=== PATIENT | female | born 1930 | race Caucasian/White ===

== ENCOUNTER 2016-12-14 08:24 | Inpatient (IN) | payer OTHER ==
[2016-12-01 13:49] VITALS: BMI 31.0
--- NOTE | 2016-12-01 14:25 | PAT Medication Instructions ---
Service Date Dec 01, 2016. Current Home Medication List Aloe Vera (Topical) (Aloe Vera), 1 TAB PO QAM Bimatoprost (Lumigan), 1 DROPS OP HS Brimonidine Tartrate (Alphagan P Oph), 1 DROP OP BID Metoprolol Succ (Toprol Xl) (Toprol-Xl), 25 MG PO QAM Naproxen (Aleve), 440 MG PO PRN S-Adenosylmethionine (Panchito E), 400 MG PO QAM Medication Instructions For Your Scheduled Surgery - Hold the following medications as of 12/01/16: S-Adenosylmethionine (Panchito E), 400 MG PO QAM - Hold the following medications 7 days prior to surgery: Naproxen (Aleve), 440 MG PO PRN (per surgeon's instructions) - Hold the following medications 24 hours prior to surgery: Aloe Vera (Topical) (Aloe Vera), 1 TAB PO QAM - Take the following medications the morning of surgery with a sip of water OTHERWISE NOTHING TO EAT OR DRINK AFTER MIDNIGHT: Metoprolol Succ (Toprol Xl) (Toprol-Xl), 25 MG PO QAM Brimonidine Tartrate (Alphagan P Oph), 1 DROP OP BID Tylenol (may take if needed up to 4 hours prior to surgery) - Take the following medications as scheduled the night before surgery: Bimatoprost (Lumigan), 1 DROPS OP HS Brimonidine Tartrate (Alphagan P Oph), 1 DROP OP BID Tylenol If you have any questions please call us at [phone] or [phone] or [phone]
[2016-12-01 15:03] LABS: BASO % 0.5 %; BASO ABS # 0.04 K/uL (0-0.2); COMPLETE YES; EOS % 3.6 %; HEMATOCRIT 40.1 % (37-47); IG% 0.1 %; LYMPH % 38.8 %; MEAN CELL VOLUME 96.4 fL (80-100); MEAN CORPUSCULAR HEMOGLOBIN 32.5 pg (25-34); MEAN CORPUSCULAR HGB CONC 33.7 g/dl (32-36); MEAN PLATELET VOLUME 9.5 fL (7.4-10.4); MONO % 8.4 %; NEUT % 48.6 %; PLATELET COUNT 281 K/uL (130-400); RED BLOOD COUNT 4.16 M/uL (4.2-5.4)
[2016-12-01 15:05] LABS: URINE APPEARANCE CLEAR (CLEAR); URINE BILIRUBIN NEG (NEG); URINE COLOR YELLOW; URINE EPITHELIAL CELL AUTO >30 /lpf (0-5); URINE NITRITE NEG (NEG); URINE SPECIFIC GRAVITY 1.025 (1.000-1.030); UROBILINOGEN NEG (NEG); ZZUR CULT IF INDIC CLEAN CATCH NO
[2016-12-01 15:10] LABS: MANUAL MICROSCOPIC REQUIRED? NO; REVIEW REQ? NO
[2016-12-01 15:11] LABS: PROTHROMBIN TIME (PATIENT) 10.6 SECONDS (9.0-12.0)
--- NOTE | 2016-12-01 15:17 | DIAGNOSTIC IMAGING REPORT ---
CHEST PREADMISSION(PA/LAT) CLINICAL HISTORY: Preoperative chest COMPARISON STUDY: No previous studies for comparison. FINDINGS: The cardiac and mediastinal contours are normal. There is no evidence of focal pulmonary consolidation. There is no evidence of failure. No pleural effusions are visualized.[ There are surgical clips in the left axillary region. There is a calcified granuloma within the right upper lung zone. IMPRESSION: No active disease in the chest. Electronically signed by: Ja Allen M.D. 12/01/2016 3:16 PM Dictated Date/Time: 12/01/2016 3:15 PM
[2016-12-01 15:47] LABS: BUN/CREATININE RATIO 22.2 (10-20); CALCIUM 9.3 mg/dl (8.5-10.1); POTASSIUM 4.3 mmol/L (3.5-5.1)
[2016-12-02 07:12] LABS: ESTIMATED AVERAGE GLUCOSE 120 mg/dl; HA1C FLAG Normal (Normal)
--- NOTE | 2016-12-13 19:58 | HISTORY & PHYSICAL EXAMINATION ---
DATE OF ADMISSION: 12/14/2016 HISTORY OF PRESENT ILLNESS: The patient is an 86-year-old white female who presents with complaints of ongoing severe DJD with inability to ambulate due to pain about her right knee. She has a valgus alignment to her right knee. She has failed all attempts at conservative management including, physical therapy, anti-inflammatories, relative rest, activity modification, bracing, corticosteroid injections and presents for total knee arthroplasty. Thorough discussion regarding risks, complications has been had. The patient understands and has elected to proceed forward with total knee arthroplasty. PAST MEDICAL HISTORY: Consistent with hypertension. The patient denies diabetes or other bleeding disorders. Otherwise unremarkable. See history of present illness for pertinent positives. PAST FAMILY HISTORY: Otherwise unremarkable and noncontributory. SOCIAL HISTORY: The patient denies history of alcohol use, smoking or recreational drug use. ALLERGIES: ARE TO PENICILLIN AND SULFA. PAST SURGICAL HISTORY: Significant for a previous breast cancer, mastectomy in 1998, hysterectomy. MEDICATIONS: Include, aspirin 81 mg p.o. daily. PHYSICAL EXAMINATION: GENERAL: Reveals a very pleasant 86-year-old white female, alert and oriented x3, in no acute distress. HEENT: Atraumatic, normocephalic. HEART: Regular at 70 beats per minute. No murmurs are noted. LUNGS: Clear. No rales, rhonchi, or wheezes noted. ABDOMEN: Soft, nontender, nondistended. Bowel sounds are present in all 4 quadrants. RECTAL: No rectal examination was performed. MUSCULOSKELETAL: Reveals severe tricompartmental degenerative joint disease with valgus alignment, she has subchondral cystic changes, osteophyte formation and sclerosis. PLAN: She presents for total knee arthroplasty, postoperative pain management, DVT prophylaxis as noted above. The patient understands the risks and complications and has elected to proceed forward. We will make arrangements for a total knee arthroplasty, postoperative pain management, DVT prophylaxis as noted above. MANNYD
[2016-12-14] VITALS (10 sets, daily range): BP systolic 95–154; BP diastolic 52–97; PULSE 73–103; TEMP 36–36.8; O2SAT 92–99; Ht 167.6 cm; Wt 90.4 kg
[~2016-12-14] VITALS: Ht 167.6 cm; Wt 90.4 kg
[2016-12-14] MEDS: TRANEXAMIC ACID INJ 1,000 MG in SODIUM CHLORIDE 0.9% 100ML 100 ML IV SCH ×2 (06:30→11:13)
--- NOTE | 2016-12-14 08:22 | History & Physical Bridge Note ---
H&P Re-Evaluation Bridge Note: I have examined the patient, reviewed the History & Physical and in the interval since the performance of the History & Physical I have noted the following changes of clinical significance: No changes noted
[~2016-12-14 08:24] MED LIST: ACETAMINOPHEN 500 MG TAB PO SCH; ALOE1GEL2 PO; BIMA0.01 OP; BRIM0.1S OP; BUPIVACAINE 0.5 % 5 MG/1 ML PF 10ML VIAL ONE; CLINDAMYCIN 600 MG/54 ML D5W 54 ML IV SCH; CeleBREX 200 MG CAP PO SCH; DEXAMETHASONE 4 MG TAB PO SCH; FAMOTIDINE 20 MG TAB PO SCH; GABAPENTIN 300 MG CAP PO SCH; LACTATED RINGER'S 1000ML 1,000 ML IV SCH; LACTATED RINGER'S 1000ML 500 ML IV ONE; METO25TA3 PO; METOCLOPRAMIDE HCL 10 MG TAB PO SCH; NAPR1TAB9 PO; ROPIVACAINE 5MG/ML 30 ML 150 MG, BUPIVACAINE/EPINEPHR 0.5% MPF 30 ML, KETOROLAC TROMETH... INFIL SCH; S-AD1TAB6 PO
[2016-12-14] MEDS ORDERED: EpHEDrine SULFATE INJ 50 MG/ML AMP IV PRN (09:15)
[2016-12-14] MEDS ORDERED: ONDANSETRON INJ 2 MG/ML 2 ML VIAL IV PRN ×2 (09:15→13:00)
[2016-12-14] MEDS ORDERED: FENTANYL CITRATE INJ 50 MCG/1 ML 2 ML VIAL IV PRN (09:15)
[2016-12-14] MEDS ORDERED: ATROPINE SULFATE 0.1 MG/ML 5ML SYR IV PRN (09:15)
[2016-12-14] MEDS ORDERED: PROPOFOL IV EMULSION 10 MG/ML 20 ML VIAL IV ONE (09:27)
[2016-12-14] MEDS ORDERED: MIDAZOLAM HCL 1 MG/ML 2ML VIAL ONE (09:27)
[2016-12-14] MEDS ORDERED: LIDOCAINE HCL 2% 2 ML VIAL (20MG/ML) ONE (09:27)
[2016-12-14] MEDS ORDERED: FENTANYL CITRATE INJ 50 MCG/1 ML 2 ML VIAL ONE (09:27)
[2016-12-14] MEDS ORDERED: POVIDONE-IODINE OP SOLN 30 ML BTL ONE (10:25)
[2016-12-14] MEDS ORDERED: BACITRACIN 50000 UNIT VIAL ONE (10:25)
[2016-12-14] MEDS ORDERED: ORTHO JOINT ANESTHETIC ONE (10:25)
--- NOTE | 2016-12-14 12:15 | [facility] Operative Report ---
Operative Report Operative Date Dec 14, 2016. Pre-Operative Diagnosis Severe Right Knee Degenerative Joint Disease Post-Operative Diagnosis Severe Right Knee Degenerative Joint Disease Procedure(s) Performed Right Total Knee Arthroplasty utilizing Carrillo & Nephew journey 2 nonlocked total knee arthroplasty size 5 femur 4 tibia 10 poly-[address] Van Schwab General Engineering Teacher Surgeon(s) Gregg BERMUDEZ Estimated Blood Loss 5ml Findings Severe end-stage tricompartmental degenerative joint disease right knee with valgus alignment Specimens Permanent: A. Right Knee Bone and Tissue Complication(s) None Disposition Recovery Room / PACU Indications Severe end-stage tricompartmental degenerative joint disease with valgus alignment large positive conservative therapy Description of Procedure After proper prepping and draping of the Right lower extremity anterior midline incision was made over the region of the extensor extensor mechanism after meticulous hemostasis was obtained and maintained in subcutaneous tissues a medial parapatellar incision was made The patella was subluxed lateralward the medial lateral gutter were cleaned from any hypertrophic synovitis and scar tissue of the distal femoral block was placed and the distal femoral osteotomy cut was made subsequently the chamfers anterior and posterior osteotomy cuts were made utilizing the 4-in-1 block the tibia was subsequently subluxed anteriorward medial and ateral meniscal remnants were excised in their entirety remnants of the anterior and posterior cruciate ligaments were excised in their entirety excellent exposure of the proximal tibia was obtained the tibial osteotomy guide was placed on the proximal tibial osteotomy cut was made once again the knee was irrigated with copious amounts of sterile saline solution the patella was subsequently everted lateralward thickened scar tissue around the patella was removed the patella was subsequently cut utilizing a freehand technique and was drilled prepared for final preparation and placement of patella socially flexion-extension gaps were checked and the equal and symmetric trials were placed to the appropriate femoral and tibial trials with poly-spacer being placed for equal flexion and extension gaps and full range of motion including extension to 0 and flexion to 140 the trial components after having been taken to recovery range of motion was subsequently removed meticulous hemostasis was obtained and maintained subsequently a knee block injection of joint cocktail including ropivacaine 0.5% 150 mg. Bupivacaine 0.5 % epinephrine 1-200,030 mL's toradol 30 mg dexamethasone 4 mg ketamine 10 mg clonidine 100 micrograms normal saline solution 30 mg was infiltrated into the soft tissues of the posterior knee medial lateral gutters and periosteal synovium special attention was paid to protect neurovascular structures at all times subsequently trial components having been removed the knee was irrigated with sterile saline solution. debris was removed the proximal tibia was subsequently prepared and was made ready for the placement of the tibial component tibial component was also cemented and tamped into position the femoral component was subsequently placed and cemented in the position the patellar component was subsequently cemented in position because hemostasis once again obtained and maintained wound having been thoroughly irrigated with debridement and debridement lavage was performed as well as a medial parapatellar incision closed with #1 Vicryl in interrupted fashion subcutaneous was closed with #2 Vicryl skin was closed with skin clips. PA-C was necessary for prepping and drapping as well as wound closure of deep fascia Sub cutaneous tissue and skin and was necessary for the case. A sterile compressive dressing was placed patient was taken to recovery in stable condition of report dictated by Zaheer I attest to the content of the Intraoperative Record and any orders documented therein. Any exceptions are noted below. I attest to the content of the Intraoperative Record and any orders documented therein. Any exceptions are noted below.
[2016-12-14] MEDS ORDERED: BISACODYL 10 MG SUPP PR PRN (13:00)
[2016-12-14] MEDS ORDERED: MAGNESIUM HYDROXIDE SUSP 30 ML UDC PO PRN (13:00)
[2016-12-14] MEDS ORDERED: TRAMADOL HCL 50 MG TAB PO PRN (13:00)
[2016-12-14] MEDS ORDERED: ALUMINUM/MAGNESIUM/SIMETH (MAALOX MAX) 30 ML UDC PO PRN (13:00)
[2016-12-14] MEDS ORDERED: MoRPHine SULFATE 2 MG/ML CARP IV PRN (13:00)
--- NOTE | 2016-12-14 13:36 | DIAGNOSTIC IMAGING REPORT ---
RIGHT KNEE 1 OR 2 VIEWS ROUTINE CLINICAL HISTORY: Degenerative arthritis. Postop study. COMPARISON: None. DISCUSSION: There are postsurgical changes of a total right knee arthroplasty and patellar resurfacing. Overlying skin barak and surgical drains are evident. There is air in soft tissues consistent with recent surgery. IMPRESSION: Postsurgical changes of a total right knee arthroplasty Electronically signed by: Ja Allen M.D. 12/14/2016 1:35 PM Dictated Date/Time: 12/14/2016 1:34 PM
--- NOTE | 2016-12-14 13:44 | Anesthesiology Progress Note ---
Anesthesia Post Op Note Date & Time Dec 14, 2016 at 13:44 Vital Signs Pain Intensity: 0 Vital Signs Past 12 Hours Date Time Temp Pulse Resp B/P (MAP) Pulse Ox O2 Delivery O2 Flow Rate FiO2 12/14/16 13:35 36.5 81 16 124/77 97 Nasal Cannula 2 12/14/16 13:25 36.5 78 16 125/74 97 Nasal Cannula 2 12/14/16 13:15 78 16 120/67 97 Nasal Cannula 2 12/14/16 13:05 78 16 117/64 97 Nasal Cannula 2 12/14/16 12:55 81 16 128/70 97 Nasal Cannula 2 12/14/16 12:48 36.7 83 16 121/58 94 Nasal Cannula 2 12/14/16 08:58 36.6 103 20 154/97 97 Room Air Notes Mental Status: alert / awake / arousable, participated in evaluation Pt Amnestic to Procedure: Yes Nausea / Vomiting: adequately controlled Pain: adequately controlled Airway Patency, RR, SpO2: stable & adequate BP & HR: stable & adequate Hydration State: stable & adequate Neuraxial Anesthesia: was administered, sensory block is resolving Anesthetic Complications: no major complications apparent
[2016-12-14] MEDS: ALPHAGAN~ORDER AWAITING ACTION SCH ×2 (16:00→23:31)
[2016-12-14] MEDS: D5W AND 1/2NSS + 20MEQ KCL 1,000 ML IV SCH (16:31)
[2016-12-14] MEDS: FERROUS GLUCONATE 324 MG TAB PO SCH (18:15)
[2016-12-14] MEDS: CLINDAMYCIN IV 600 MG in DEXTROSE 5% 50ML 50 ML IV SCH (20:30)
[2016-12-14] MEDS: ACETAMINOPHEN 500 MG TAB PO SCH (21:44)
[2016-12-14] MEDS: BIMATOPROST 0.01% OP SOLN 2.5 ML BTL OP SCH (21:44)
[2016-12-14] MEDS: SENNA 8.6 MG TAB PO SCH (21:45)
[2016-12-14] MEDS: DOCUSATE SODIUM 100 MG CAP PO SCH (21:45)
[2016-12-14] MEDS: ASPIRIN 81 MG ECTAB PO SCH (21:46)
[2016-12-15] MEDS: D5W AND 1/2NSS + 20MEQ KCL 1,000 ML IV SCH ×2 (01:12→11:00)
[2016-12-15 02:53] VITALS: BP 102/65; PULSE 71; TEMP 36.5; O2SAT 95
[2016-12-15] MEDS: CLINDAMYCIN IV 600 MG in DEXTROSE 5% 50ML 50 ML IV SCH (04:10)
[2016-12-15] MEDS: ACETAMINOPHEN 500 MG TAB PO SCH ×3 (05:34→21:34)
[2016-12-15 05:56] LABS: HEMATOCRIT 34.9 % (37-47); MEAN CELL VOLUME 97.5 fL (80-100); MEAN CORPUSCULAR HEMOGLOBIN 31.3 pg (25-34); MEAN CORPUSCULAR HGB CONC 32.1 g/dl (32-36); MEAN PLATELET VOLUME 9.3 fL (7.4-10.4); PLATELET COUNT 256 K/uL (130-400); RED BLOOD COUNT 3.58 M/uL (4.2-5.4); WHITE BLOOD COUNT 18.73 K/uL (4.8-10.8)
[2016-12-15 06:28] LABS: BUN/CREATININE RATIO 16.5 (10-20); CALCIUM 7.8 mg/dl (8.5-10.1); CREATININE 1.2 mg/dl (0.60-1.20); POTASSIUM 4.3 mmol/L (3.5-5.1)
[2016-12-15 07:24] VITALS: BP 120/76; PULSE 75; TEMP 36.5; O2SAT 95
[2016-12-15] MEDS: MULTIVITAMIN TAB PO SCH (08:37)
[2016-12-15] MEDS: PANTOprazole SOD 40 MG TAB PO SCH (08:40)
[2016-12-15] MEDS: DOCUSATE SODIUM 100 MG CAP PO SCH ×2 (08:40→21:00)
[2016-12-15] MEDS: METOPROLOL SUCC 25MG EXT REL TAB PO SCH (08:40)
[2016-12-15] MEDS: FERROUS GLUCONATE 324 MG TAB PO SCH ×3 (08:40→17:21)
[2016-12-15] MEDS: ASPIRIN 81 MG ECTAB PO SCH ×2 (08:41→21:32)
[2016-12-15] MEDS: ALPHAGAN~ORDER AWAITING ACTION SCH ×3 (08:41→22:48)
[2016-12-15] MEDS: OXYCODONE HCL IR 5 MG TAB (IMMEDIATE RELEASE) PO PRN ×3 (09:57→23:18)
--- NOTE | 2016-12-15 10:16 | Anesthesiology Progress Note ---
Anesthesia Post Op Note Date & Time Dec 15, 2016 at 10:15 Vital Signs Pain Intensity: 3.0 Vital Signs Past 12 Hours Date Time Temp Pulse Resp B/P (MAP) Pulse Ox O2 Delivery O2 Flow Rate FiO2 12/15/16 07:30 Room Air 12/15/16 07:24 36.5 75 17 120/76 (91) 95 Room Air 12/15/16 02:53 36.5 71 18 102/65 (77) 95 Room Air 12/14/16 23:00 36.8 76 16 103/64 (77) 92 Room Air Notes Mental Status: alert / awake / arousable, participated in evaluation Pt Amnestic to Procedure: Yes Nausea / Vomiting: adequately controlled Pain: adequately controlled Airway Patency, RR, SpO2: stable & adequate BP & HR: stable & adequate Hydration State: stable & adequate Neuraxial Anesthesia: was administered, sensory block resolved Anesthetic Complications: no major complications apparent
[2016-12-15 15:40] VITALS: BP 147/83; PULSE 104; TEMP 36.4; O2SAT 95
[2016-12-15] MEDS: BIMATOPROST 0.01% OP SOLN 2.5 ML BTL OP SCH (21:00)
[2016-12-15] MEDS: SENNA 8.6 MG TAB PO SCH (21:00)
[2016-12-15 23:12] VITALS: BP 113/72; PULSE 74; TEMP 36.6; O2SAT 94
[2016-12-16] MEDS: ACETAMINOPHEN 500 MG TAB PO SCH ×2 (05:45→13:41)
[2016-12-16 06:04] VITALS: BP 122/76; PULSE 72; TEMP 36.4; O2SAT 98
--- NOTE | 2016-12-16 07:09 | Orthopedic Progress Note ---
Orthopedic Progress Note Date of Service Dec 16, 2016. Subjective Post OP Day: 2 Reports: feeling well, pain controlled w PO medications, Denies: complaints, chest pain, SOB, nausea / vomiting, light headedness, calf pain Objective calves soft nontender, N/V intact, capillary refill less than 2 sec., dressing C /D/I (silverlon intact), A&O x3, toes mobile Date Time Temp Pulse Resp B/P (MAP) Pulse Ox O2 Delivery O2 Flow Rate FiO2 12/16/16 06:04 36.4 72 16 122/76 (91) 98 Room Air 12/15/16 23:12 36.6 74 16 113/72 (86) 94 Room Air 12/15/16 23:10 Room Air 12/15/16 16:15 Room Air 12/15/16 15:40 36.4 104 16 147/83 (104) 95 Room Air 12/15/16 07:30 Room Air 12/15/16 07:24 36.5 75 17 120/76 (91) 95 Room Air Assessment & Plan Assessment: POD #2 s/p Right TKA -pt/ot -dvt proph with livier/scd/asa -plan for d/c home with HHPT Discharge Planning Discharge Planning: home with home health DVT Prophylaxis: TEDs, SCDs
--- NOTE | 2016-12-16 07:11 | Discharge Instructions ---
Discharge Instructions Date of Service Dec 16, 2016. Admission Reason for Admission: Right Knee Osteoarthritis Discharge Discharge Diagnosis / Problem: right total knee replacement Discharge Goals Goal(s): Decrease discomfort, Improve function, Increase independence Activity Recommendations Activity Limitations: as noted below Weightbearing Status: Right weightbearing (as tolerated) . Instructions / Follow-Up Instructions / Follow-Up ACTIVITY RECOMMENDATIONS: SELF CARE INSTRUCTIONS AFTER TOTAL KNEE REPLACEMENT A. You may need to continue a physical therapy program after discharge from the hospital. There are several options available to you. Your doctor will assist you in selecting the best one for you. 1. An out-patient facility 2 to 3 times a week for therapy or home therapy. 2. Continue working on all exercises taught to you in the hospital. Your goals should be to increase bending of your knee to 90 degrees and beyond and to fully straighten your knee. B. You may progress at your own pace from walking with a walker or crutches to a cane; then to no assistive devices. C. Make walking a part of your daily routine. Be up as much as comfortable with rest periods throughout the day. Rest with leg elevation is very important. Use the ice wrap frequently for the first 3-4 weeks. D. There are no restrictions on activities. You may ride in a car, shop, participate in night coordinator and all social activities. E. Wear the long elastic stockings (DASHA hose) 20 hours a day for 2 weeks after surgery. They can be removed several times a day for laundering and for a bath. F. You may shower, no tub baths until cleared by your doctor. SPECIAL CARE INSTRUCTIONS: VERY IMPORTANT TO READ AND REVIEW A. There are a few signs you need to watch for after you are home. Call [facility] if you notice any of the followin. Increased severe knee pain. Some pain is expected especially when you exercise. 2. Increased swelling in your leg or knee; pain or swelling of the calf muscle in either lower leg. 3. Any fluid drainage from the incision. 4. Shortness of breath or chest pain. B. Please call [facility] at if you have any concerns or questions about your operation or recovery. The doctor or his nurse will return your call promptly. C. You must take antibiotics before dental work, bladder, bowel or other surgery. Your doctor will provide you with a permanent care to carry describing this precaution. IMPORTANT: * REMEMBER TO TAKE ASPIRIN, 81 MG, TWICE DAILY FOR 4 WEEKS UNLESS OTHERWISE DIRECTED. THIS IS YOUR BLOOD THINNER. * HIGH RISK PATIENTS MAY BE PRESCRIBED A STRONGER BLOOD THINNER. THIS WILL BE PROVIDED AT DISCHARGE. * CALL IF INCREASED PAIN, REDNESS, DRAINAGE OR FEVER GREATER THAT 101. * WEAR DASHA HOSE 20 HOURS PER DAY FOR 2 WEEKS. * YOU MAY HAVE A LARGE BAND-AID LIKE DRESSING (SILVERON). THIS WILL REMAIN ON YOUR INCISION FOR 7 DAYS, THEN CAN BE REMOVED. IF INCISION IS LEAKING THROUGH DRESSING, CALL THE OFFICE . FOLLOW UP VISIT: If appointment is not already scheduled: Please call [facility] to make a follow-up appointment for 2 weeks after your surgery at . Current Hospital Diet Patient's current hospital diet: Regular Diet Discharge Diet Recommended Diet: Regular Diet Procedures Procedures Performed: Right Total Knee Arthroplasty utilizing Carrillo & Nephew journey 2 nonlocked total knee arthroplasty size 5 femur 4 tibia 10 poly-29 oval patella Pending Studies Studies pending at discharge: no Laboratory Results Hemoglobin A1c Test 12/01/16 14:37 Range/Units Estimated Average Glucose 120 mg/dl Hemoglobin A1c 5.8 H 4.5-5.6 % Medical Emergencies . Who to Call and When: Medical Emergencies: If at any time you feel your situation is an emergency, please call 911 immediately. . Non-Emergent Contact Non-Emergency issues call your: Primary Care Provider, Surgeon . "Provider Documentation" section prepared by Reynaldo Barry. . VTE Core Measure Inpt VTE Proph given/why not?: Other Anticoagulation (aspirin 81mg po bid x 1 month), Tommie Lynn, SCD's [place] Drug Monitoring Program Search Results: patient reviewed within database, no issues identified
[2016-12-16] MEDS ORDERED: RXC5 PO (07:16)
[2016-12-16] MEDS ORDERED: ONDA8TAB6 PO (07:16)
[2016-12-16] MEDS ORDERED: CLC100 PO (07:16)
[2016-12-16] MEDS ORDERED: ASPEC81 PO (07:16)
[2016-12-16] MEDS ORDERED: ULT50X PO (07:16)
[2016-12-16] MEDS ORDERED: ACET-24 PO (07:16)
[2016-12-16 07:20] VITALS: BP 136/69; PULSE 75; TEMP 36.6; O2SAT 96
[2016-12-16] MEDS: FERROUS GLUCONATE 324 MG TAB PO SCH ×3 (07:36→13:42)
[2016-12-16] MEDS: ALPHAGAN~ORDER AWAITING ACTION SCH (07:36)
[2016-12-16] MEDS: DOCUSATE SODIUM 100 MG CAP PO SCH (07:36)
[2016-12-16] MEDS: MULTIVITAMIN TAB PO SCH (07:36)
[2016-12-16] MEDS: METOPROLOL SUCC 25MG EXT REL TAB PO SCH (07:37)
[2016-12-16] MEDS: PANTOprazole SOD 40 MG TAB PO SCH (07:37)
[2016-12-16] MEDS: ASPIRIN 81 MG ECTAB PO SCH (08:36)
[2016-12-16] MEDS: OXYCODONE HCL IR 5 MG TAB (IMMEDIATE RELEASE) PO PRN (09:44)
[2016-12-16 12:05] VITALS: BP 136/69; PULSE 75; TEMP 36.6; O2SAT 96
--- NOTE | 2016-12-20 17:16 | DISCHARGE SUMMARY ---
DISCHARGE DIAGNOSIS: Degenerative joint disease, right knee. SECONDARY DIAGNOSES: Hypertension, glaucoma. CONSULTS: None. COMPLICATIONS: None. PROCEDURES: Right total knee arthroplasty performed by Dr. Schwab on 12/14/2016. BRIEF HISTORY: As dictated in history and physical. HOSPITAL SUMMARY: The patient was admitted on the above date and had the above-noted surgery performed which she tolerated well. She was started on her physical therapy protocol on the first postoperative day and vital signs remaining stable. Hemoglobin was 11.2 and white count was noted to be 18, which was felt to be due to surgical stress and preoperative steroids. By December 16, she was feeling well and pain was controlled. Her dressings were intact with the Silverlon dressing. Toes were mobile. Calves were soft and nontender and she was progressing well with her physical therapy and it was felt she could be discharged to home with home health physical therapy. For further review, please see chart. LABORATORY AND X-RAY DATA: As per chart. DISCHARGE INSTRUCTIONS: The patient was discharged to home in satisfactory condition on 12/16/2016. DIET: Regular. ACTIVITY: Weightbearing as tolerated right lower extremity. Follow TK instruction sheets and special care instructions as noted. Follow up with Dr. Schwab in 2 weeks. The patient to call for appointment if one has not been made for you. DISCHARGE MEDICATIONS: Acetaminophen 1000 mg p.o. q. 8 hours, aspirin 81 mg p.o. b.i.d., Colace 100 mg p.o. b.i.d., Zofran 8 mg p.o. q. 8 hours p.r.n. nausea, oxycodone 5-10 mg p.o. q. 4 hours p.r.n., tramadol 50-100 mg p.o. q. 4 hours p.r.n. Resume home meds as listed and stop taking naproxen.
== END 2016-12-16 14:20 | disposition home health service (06) | DRG 470 ==
LOC: C.ACU 08:24 → C.3E 09:15 → ENRESERV 13:35
PROVIDERS: ADMIT Orthopaedic Surgery; ATTEND Orthopaedic Surgery
PROC: 0SRC0J9 Replacement of Right Knee Joint with Synthetic Substitute, Cemented, Open Approach (ICD-10-PCS; principal; 2016-12-14 10:30)
DX: M17.11 Unilateral primary osteoarthritis, right knee (principal); I10 Essential (primary) hypertension; Z79.82 Long term (current) use of aspirin; Z85.3 Personal history of malignant neoplasm of breast

== ENCOUNTER → 2017-07-08 | Outpatient (CLI) | payer OTHER ==
[~2017-07-08] MED LIST changes: +ACET-24 PO; -ACETAMINOPHEN 500 MG TAB PO SCH; +ASPEC81 PO; -BUPIVACAINE 0.5 % 5 MG/1 ML PF 10ML VIAL ONE; +CLC100 PO; -CLINDAMYCIN 600 MG/54 ML D5W 54 ML IV SCH; -CeleBREX 200 MG CAP PO SCH; -DEXAMETHASONE 4 MG TAB PO SCH; -FAMOTIDINE 20 MG TAB PO SCH; -GABAPENTIN 300 MG CAP PO SCH; +IBUP-1050 PO; -LACTATED RINGER'S 1000ML 1,000 ML IV SCH; -LACTATED RINGER'S 1000ML 500 ML IV ONE; -METOCLOPRAMIDE HCL 10 MG TAB PO SCH; -NAPR1TAB9 PO; -ROPIVACAINE 5MG/ML 30 ML 150 MG, BUPIVACAINE/EPINEPHR 0.5% MPF 30 ML, KETOROLAC TROMETH... INFIL SCH; +RXC5 PO; +SENNTAB23 PO; +ULT50X PO
[2017-07-08 13:21] LABS: MEAN CORPUSCULAR HGB CONC 32.9 g/dl (32-36); MEAN PLATELET VOLUME 9.6 fL (7.4-10.4); PLATELET COUNT 265 K/uL (130-400)
[2017-07-08 13:35] LABS: PTT PATIENT 23.2 SECONDS (21.0-31.0)
[2017-07-08 14:15] LABS: BASO % 0.3 %; BASO ABS # 0.03 K/uL (0-0.2); EOS % 1.4 %; EOS ABS # 0.13 K/uL (0-0.5); HEMATOCRIT 41.9 % (37-47); HEMOGLOBIN 13.8 g/dL (12.0-16.0); IG# 0.02 K/uL (0.00-0.02); LYMPH % 37.2 %; LYMPH ABS # 3.36 K/uL (1.2-3.4); MEAN CELL VOLUME 96.1 fL (80-100); MEAN CORPUSCULAR HEMOGLOBIN 31.7 pg (25-34); MONO % 7.6 %; MONO ABS # 0.69 K/uL (0.11-0.59); NEUT % 53.3 %; NEUT ABS # 4.81 K/uL (1.4-6.5); RED CELL DISTRIBUTION WIDTH CV 14.5 % (11.5-14.5); RED CELL DISTRIBUTION WIDTH SD 51.3 fL (36.4-46.3); WHITE BLOOD COUNT 9.04 K/uL (4.8-10.8)
[2017-07-08 16:33] LABS: ALBUMIN 3.8 gm/dl (3.4-5.0); BLOOD UREA NITROGEN 18 mg/dl (7-18); CALCIUM 9.2 mg/dl (8.5-10.1); CARBON DIOXIDE 26 mmol/L (21-32); CREATININE 1.02 mg/dl (0.60-1.20); GLUCOSE 88 mg/dl (70-99); POTASSIUM 4.3 mmol/L (3.5-5.1); SODIUM 138 mmol/L (136-145)
[2017-07-09 07:45] LABS: HEMOGLOBIN A1C 5.7 % (4.5-5.6)
== END | disposition home or self-care (01) ==
LOC: C.LAB 12:00
PROVIDERS: ATTEND Orthopaedic Surgery
DX: M17.12 Unilateral primary osteoarthritis, left knee (principal)

== ENCOUNTER 2017-07-19 09:03 | Inpatient (IN) | payer OTHER ==
[2017-07-11 14:53] VITALS: BMI 31.0
[2017-07-19] VITALS (9 sets, daily range): BP systolic 105–147; BP diastolic 58–77; PULSE 66–84; TEMP 35.8–36.6; O2SAT 95–98; Ht 168.9 cm; Wt 90.4 kg
[~2017-07-19] VITALS: Ht 168.9 cm; Wt 90.4 kg
--- NOTE | 2017-07-19 07:21 | History and Physical ---
History & Physical Date Jul 19, 2017. Chief Complaint Patient presents as an 86-year-old white female being seen and evaluated for ongoing complaints of pain about her left knee she is previously undergone a right total knee arthroplasty she presents with complaints of pain limiting her ambulation she failed attempts at conservative management and physical therapy anti-inflammatories relative rest activity modification with her advanced age she is a physiologically outstanding 86-year-old with no other complaints her knee exam she is in a valgus alignment with a mild ligamentous laxity she has [id number] changes involving her lateral compartment subchondral cystic changes sclerosis marginal osteophytes as she is failed conservative management presents for total knee arthroplasty History of Present Illness The patient is a 86 year old female with complaints of ongoing pain through to her left knee she is previously undergone right total knee arthroplasty presents for left total knee arthroplasty postoperative pain management and prophylaxis she is failed attempts at conservative management including physical therapy anti-inflammatories relative rest she has valgus alignment subchondral cystic changes degenerative changes include marginal osteophytes and sclerosis Past Medical/Surgical History Medical Problems: (1) Right knee DJD Additional History Hepatic Disease: No Endocrine Disorder: No Kidney Disease: No Hypertension: Yes Heart Disease: No Bleeding Tendencies: No Infectious Diseases: No Allergies Coded Allergies: Penicillins (Verified Allergy, Unknown, ITCHING, 07/11/17) Sulfa Antibiotics (Verified Allergy, Unknown, ITCHING, 07/11/17) Home Medications Scheduled Aloe Vera (Topical) (Aloe Vera), 1 TAB PO QAM Bimatoprost (Lumigan), 1 DROPS OP HS Brimonidine Tartrate (Alphagan P Oph), 1 DROP OP BID Ibuprofen (Advil), 400 MG PO PRN Metoprolol Succ (Toprol Xl) (Toprol-Xl), 25 MG PO QAM Sennosides-Docusate Sodium (Stool Softener), 1 TAB PO PRN Physical Examination Skin: warm/dry, no rash Eyes: normal inspection, EOMI, sclerae normal ENT: normal ENT inspection, pharynx normal Head: normocephalic, atraumatic Neck: supple, no adenopathy, trachea midline Respiratory/Chest: lungs clear, normal breath sounds, no respiratory distress Cardiovascular: regular rate, rhythm, no edema, no murmur Abdomen / GI: normal bowel sounds, non tender Back: normal inspection Extremities: normal inspection, normal range of motion, + pertinent finding ( Patient has a valgus alignment of knee with moderate effusion ligamentous laxity with the bone to bone changes compartment crepitation medial and lateral joint line pain and tenderness) Neurologic/Psych: no motor/sensory deficits, alert, normal reflexes, oriented x 3 Addiitonal Comments: Patient has allergies to penicillin sulfa history previous of breast cancer mastectomy in 1998 Diagnosis Severe end-stage tricompartmental degenerative joint disease left knee plans for a left total knee arthroplasty postoperative pain management DVT prophylaxis Plan of Treatment Patient presents with severe end-stage DJD left knee with valgus alignment subchondral sclerosis osteophyte formation patient has a moderate effusion joint line pain and tenderness exam consistent of end-stage DJD presenting for total knee arthroplasty postoperative pain management DVT prophylaxis
[~2017-07-19 09:03] MED LIST changes: -ACET-24 PO; +ACETAMINOPHEN 500 MG TAB PO SCH; -ASPEC81 PO; +ATROPINE SULFATE 0.1 MG/ML 5ML SYR IV PRN; +BUPIVACAINE 0.5 % 5 MG/1 ML PF 10ML VIAL ONE; -CLC100 PO; +CLINDAMYCIN 600 MG/54 ML D5W 54 ML IV SCH; +DEXAMETHASONE 4 MG TAB PO SCH; +EpHEDrine SULFATE INJ 50 MG/ML AMP IV PRN; +FAMOTIDINE 20 MG TAB PO SCH; +FENTANYL CITRATE INJ 50 MCG/1 ML 2 ML VIAL IV PRN; +GABAPENTIN 300 MG CAP PO SCH; +HYDROmorphone INJ 0.5 MG/0.5 ML SYR IV PRN; +LABETALOL HCL IV 5 MG/ML 20ML IV PRN; +LACTATED RINGER'S 1000ML 1,000 ML IV SCH; +LACTATED RINGER'S 1000ML 500 ML IV SCH; +MEPERIDINE HCL 25 MG/ML CARP IV PRN; +METOCLOPRAMIDE HCL 10 MG TAB PO SCH; +ONDANSETRON INJ 2 MG/ML 2 ML VIAL IV PRN; +ROPIVACAINE 0.5% 5 MG/ML 30 ML VIAL ONE; +ROPIVACAINE 5MG/ML 30 ML 150 MG, BUPIVACAINE 0.5% MPF INJ 30 ML, EpINEphrine HCL INJ 0.... INFIL SCH; -RXC5 PO; -S-AD1TAB6 PO; -ULT50X PO
[2017-07-19] MEDS ORDERED: FENTANYL CITRATE INJ 50 MCG/1 ML 2 ML VIAL ONE (09:57)
[2017-07-19] MEDS ORDERED: MIDAZOLAM HCL 1 MG/ML 2ML VIAL ONE (09:57)
[2017-07-19] MEDS: TRANEXAMIC ACID INJ 1,000 MG x 2 Bags IV SCH ×4 (11:10→14:17)
[2017-07-19] MEDS ORDERED: BACITRACIN 50000 UNIT VIAL ONE (11:16)
[2017-07-19] MEDS ORDERED: ORTHO JOINT ANESTHETIC ONE (11:16)
[2017-07-19] MEDS ORDERED: POVIDONE-IODINE OP SOLN 30 ML BTL ONE (11:16)
[2017-07-19] MEDS ORDERED: PHENYLEPHRINE 100MCG/ML 5ML SYR ONE (11:50)
--- NOTE | 2017-07-19 12:31 | [facility] Post Operative Brief Note ---
Immediate Operative Summary Operative Date Jul 19, 2017. Pre-Operative Diagnosis End-stage degenerative joint disease, left knee Post-Operative Diagnosis Same as preop Procedure(s) Performed Left Total Knee Arthroplasty utilizing Carrillo nephrevoPT journey to non-block total knee arthroplasty size 4 femur 4 tibia 9 polyethylene [address] Schwab Tea Blender Surgeon(s) Julia Barry PA-C Estimated Blood Loss 5 cc Findings Consistent with Post-Op Diagnosis Specimens A: left knee bone and tissue Anesthesia Type MAC Spinal Regional Complication(s) none Disposition Disposition: Recovery Room / PACU
--- NOTE | 2017-07-19 12:33 | [facility] Operative Report ---
Operative Report Operative Date Jul 19, 2017. Pre-Operative Diagnosis End-stage degenerative joint disease, left knee Post-Operative Diagnosis Same as preop Procedure(s) Performed Left Total Knee Arthroplasty utilizing appweevr journey to non-block total knee arthroplasty size 4 femur 4 tibia 9 polyethylene [address] 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 Surgeon(s) Julia Barry PA-C Estimated Blood Loss 5 cc Findings Patient presents with severe end-stage DJD valgus alignment of her left knee for left total knee arthroplasty she is failed attempts at conservative management including physical therapy anti-inflammatories relative rest activity modification injections she has previously undergone a right total knee arthroplasty several months prior to do remarkably well she presents today for a left total knee arthroplasty Specimens A: left knee bone and tissue Anesthesia Type MAC Spinal Regional Complication(s) none Disposition Recovery Room / PACU Indications Patient presents with severe end-stage tricompartmental degenerative joint disease valgus alignment bone the bone changes eburnated bone subchondral cystic changes marginal osteophytes sclerosis she is failed attempts at conservative management and elects to proceed forward with total knee arthroplasty left knee Description of Procedure After proper prepping and draping of the left lower extremity anterior midline incision was made over the region of the extensor extensor mechanism after meticulous hemostasis was obtained and maintained in subcutaneous tissues a medial parapatellar incision was made The patella was subluxed lateralward the medial lateral gutter were cleaned from any hypertrophic synovitis and scar tissue of the distal femoral block was placed and the distal femoral osteotomy cut was made subsequently the chamfers anterior and posterior osteotomy cuts were made utilizing the 4-in-1 block the tibia was subsequently subluxed anteriorward medial and ateral meniscal remnants were excised in their entirety remnants of the anterior and posterior cruciate ligaments were excised in their entirety excellent exposure of the proximal tibia was obtained the tibial osteotomy guide was placed on the proximal tibial osteotomy cut was made once again the knee was irrigated with copious amounts of sterile saline solution the patella was subsequently everted lateralward thickened scar tissue around the patella was removed the patella was subsequently cut utilizing a freehand technique and was drilled prepared for final preparation and placement of patella socially flexion-extension gaps were checked and the equal and symmetric trials were placed to the appropriate femoral and tibial trials with poly-spacer being placed for equal flexion and extension gaps and full range of motion including extension to 0 and flexion to 140 the trial components after having been taken to recovery range of motion was subsequently removed meticulous hemostasis was obtained and maintained subsequently a knee block injection of joint cocktail including ropivacaine 0.5% 150 mg. Bupivacaine 0.5 % epinephrine 1-200,030 mL's toradol 30 mg dexamethasone 4 mg ketamine 10 mg clonidine 100 micrograms normal saline solution 30 mg was infiltrated into the soft tissues of the posterior knee medial lateral gutters and periosteal synovium special attention was paid to protect neurovascular structures at all times subsequently trial components having been removed the knee was irrigated with sterile saline solution. debris was removed the proximal tibia was subsequently prepared and was made ready for the placement of the tibial component tibial component was also cemented and tamped into position the femoral component was subsequently placed and cemented in the position the patellar component was subsequently cemented in position because hemostasis once again obtained and maintained wound having been thoroughly irrigated with debridement and debridement lavage was performed as well as a medial parapatellar incision closed with #1 Vicryl in interrupted fashion subcutaneous was closed with #2 Vicryl skin was closed with skin clips. PA-C was necessary for prepping and drapping as well as wound closure of deep fascia Sub cutaneous tissue and skin and was necessary for the case. A sterile compressive dressing was placed patient was taken to recovery in stable condition of report dictated by Zaheer I attest to the content of the Intraoperative Record and any orders documented therein. Any exceptions are noted below. I attest to the content of the Intraoperative Record and any orders documented therein. Any exceptions are noted below.
[2017-07-19] MEDS ORDERED: PROPOFOL IV EMULSION 10 MG/ML 20 ML VIAL IV ONE (12:40)
[2017-07-19] MEDS ORDERED: SODIUM CHLORIDE 0.9% INJ 10 ML VIAL ONE (12:49)
[2017-07-19] MEDS ORDERED: ALUMINUM/MAGNESIUM/SIMETH (MAALOX MAX) 30 ML UDC PO PRN (13:15)
[2017-07-19] MEDS ORDERED: MoRPHine SULFATE 2 MG/ML CARP IV PRN (13:15)
[2017-07-19] MEDS ORDERED: SOD PHOSPHATE/SOD BIPHOSPHATE ENEMA 132 ML BTL PR PRN (13:15)
[2017-07-19] MEDS ORDERED: MAGNESIUM HYDROXIDE SUSP 30 ML UDC PO PRN (13:15)
[2017-07-19] MEDS ORDERED: ONDANSETRON INJ 2 MG/ML 2 ML VIAL IV PRN (13:15)
[2017-07-19] MEDS ORDERED: OXYCODONE HCL IR 5 MG TAB (IMMEDIATE RELEASE) PO PRN (13:15)
[2017-07-19] MEDS ORDERED: BISACODYL 10 MG SUPP PR PRN (13:15)
--- NOTE | 2017-07-19 13:36 | Anesthesiology Progress Note ---
Anesthesia Post Op Note Date & Time Jul 19, 2017 at 13:36 Vital Signs Pain Intensity: 0 Vital Signs Past 12 Hours Date Time Temp Pulse Resp B/P (MAP) Pulse Ox O2 Delivery O2 Flow Rate FiO2 07/19/17 13:13 36.8 82 12 110/52 96 Nasal Cannula 2 07/19/17 09:42 36.6 84 20 147/77 96 Room Air Notes Mental Status: alert / awake / arousable, participated in evaluation Pt Amnestic to Procedure: Yes Nausea / Vomiting: adequately controlled Pain: adequately controlled Airway Patency, RR, SpO2: stable & adequate BP & HR: stable & adequate Hydration State: stable & adequate Anesthetic Complications: no major complications apparent
--- NOTE | 2017-07-19 13:48 | DIAGNOSTIC IMAGING REPORT ---
L KNEE 1 OR 2 VIEWS ROUTINE CLINICAL HISTORY: 86 years-old Female presenting with AP/LATERAL IN PACU LEFT KNEE. TECHNIQUE: Frontal and crosstable lateral views of the left knee were obtained. COMPARISON: None. FINDINGS: Post surgical changes of total left knee arthroplasty with patellar resurfacing. Expected intra-articular and soft tissue emphysema. A surgical drain is in place. No acute fracture or malalignment. No hardware complication. IMPRESSION: Expected postsurgical appearance status post total left knee arthroplasty with patellar resurfacing. Electronically signed by: Milton Grubbs M.D. 07/19/2017 1:47 PM Dictated Date/Time: 07/19/2017 1:46 PM
[2017-07-19] MEDS: D5W AND 1/2NSS + 20MEQ KCL 1,000 ML IV SCH ×2 (15:00→23:13)
[2017-07-19] MEDS ORDERED: MoRPHine SULFATE 4 MG/ML 1 ML CARP\\VIAL IV PRN (15:00)
[2017-07-19] MEDS ORDERED: MoRPHine SULFATE 10 MG/ML CARP/VIAL IV PRN (15:00)
[2017-07-19] MEDS: CLINDAMYCIN IV 600 MG in DEXTROSE 5% 50ML 50 ML IV SCH (19:37)
[2017-07-19] MEDS: ACETAMINOPHEN 500 MG TAB PO SCH (19:38)
[2017-07-19] MEDS: SENNA 8.6 MG TAB PO SCH (20:37)
[2017-07-19] MEDS: DOCUSATE SODIUM 100 MG CAP PO SCH (20:37)
[2017-07-19] MEDS: BIMATOPROST 0.01% OP SOLN 2.5 ML BTL OP SCH (20:37)
[2017-07-19] MEDS: ASPIRIN 81 MG ECTAB PO SCH (20:37)
[2017-07-20 03:04] VITALS: BP 144/84; PULSE 79; TEMP 36.4; O2SAT 97
[2017-07-20] MEDS: CLINDAMYCIN IV 600 MG in DEXTROSE 5% 50ML 50 ML IV SCH (03:17)
[2017-07-20] MEDS: ACETAMINOPHEN 500 MG TAB PO SCH ×3 (05:49→21:42)
[2017-07-20 06:42] LABS: HEMOGLOBIN 11.8 g/dL (12.0-16.0); MEAN CELL VOLUME 94.9 fL (80-100); MEAN CORPUSCULAR HGB CONC 33.7 g/dl (32-36); MEAN PLATELET VOLUME 9.6 fL (7.4-10.4); PLATELET COUNT 223 K/uL (130-400); RED CELL DISTRIBUTION WIDTH CV 14.4 % (11.5-14.5); RED CELL DISTRIBUTION WIDTH SD 50.3 fL (36.4-46.3); WHITE BLOOD COUNT 15.88 K/uL (4.8-10.8)
[2017-07-20 07:04] LABS: CALCIUM 8.6 mg/dl (8.5-10.1); CREATININE 1.05 mg/dl (0.60-1.20); POTASSIUM 4.6 mmol/L (3.5-5.1)
--- NOTE | 2017-07-20 07:51 | Orthopedic Progress Note ---
Orthopedic Progress Note Date of Service Jul 20, 2017. Subjective Post OP Day: 1 Reports: feeling well, pain controlled w PO medications, Denies: complaints Objective calves soft nontender, dressing C/D/I, A&O x3, toes mobile, hemovac drainage ( 275ml latest shift) Pt states that she was having difficulty dorsiflexing the left foot last night. Currently, she is able to dorsiflex the foot but strength is weak currently and it's not a full dorsiflexion. Mild decrease in sensation. Date Time Temp Pulse Resp B/P (MAP) Pulse Ox O2 Delivery O2 Flow Rate FiO2 07/20/17 03:04 36.4 79 17 144/84 (104) 97 Room Air 07/19/17 23:12 Room Air 07/19/17 22:45 36.4 70 18 107/72 (84) 96 Room Air 07/19/17 19:48 36.4 73 16 117/72 (87) 97 Room Air 07/19/17 17:34 36.3 68 16 121/72 (88) 97 Room Air 07/19/17 16:33 35.8 69 16 113/58 (76) 96 Nasal Cannula 1.0 07/19/17 16:00 Nasal Cannula 2.0 07/19/17 15:30 36.4 66 16 109/70 (83) 98 Nasal Cannula 2.0 07/19/17 14:55 36.3 71 17 115/64 (81) 98 Nasal Cannula 2.0 07/19/17 14:32 97 Nasal Cannula 2.0 07/19/17 14:30 97 Nasal Cannula 2.0 07/19/17 14:29 36.4 76 17 105/65 (78) 95 Nasal Cannula 2.0 07/19/17 14:15 36.6 77 16 110/63 95 Nasal Cannula 2 07/19/17 14:00 36.6 73 20 111/64 96 Nasal Cannula 2 07/19/17 13:50 36.6 77 19 111/66 96 Nasal Cannula 2 07/19/17 13:40 79 20 113/67 96 Nasal Cannula 2 07/19/17 13:30 81 16 122/72 96 Nasal Cannula 2 07/19/17 13:20 86 15 122/74 96 Nasal Cannula 2 07/19/17 13:13 36.8 82 12 110/52 96 Nasal Cannula 2 07/19/17 09:42 36.6 84 20 147/77 96 Room Air Laboratory Results 24 Hours: Test 07/20/17 06:08 Hematocrit 35.0 % Hemoglobin 11.8 g/dL Prothromb Time International Ratio 1.0 Prothrombin Time 10.5 SECONDS Assessment & Plan Assessment: POD 1 s/p Left TKA Weakness with dorsiflexion of the left foot likely due to intraoperative injection Plan: PT/OT Follow foot weakness for now. DF slowly returning. Planning for her niece to do her PT at home Inhouse Planning Pain Management: Ultram, Morphine, PO Tylenol, Oxy IR DVT Prophylaxis: TEDs, SCDs, ASA Discharge Planning Discharge Planning: home with home health Therapy: Physical Therapy
[2017-07-20 07:55] VITALS: BP 108/71; PULSE 73; TEMP 36.4; O2SAT 98
[2017-07-20] MEDS: PANTOprazole SOD 40 MG TAB PO SCH (09:13)
[2017-07-20] MEDS: ASPIRIN 81 MG ECTAB PO SCH ×2 (09:13→20:33)
[2017-07-20] MEDS: MULTIVITAMIN TAB PO SCH (09:13)
[2017-07-20] MEDS: DOCUSATE SODIUM 100 MG CAP PO SCH ×2 (09:13→20:33)
[2017-07-20] MEDS: METOPROLOL SUCC 25MG EXT REL TAB PO SCH (09:13)
[2017-07-20] MEDS: D5W AND 1/2NSS + 20MEQ KCL 1,000 ML IV SCH (10:20)
[2017-07-20 10:48] VITALS: BP 124/75; PULSE 79; O2SAT 97
[2017-07-20 11:29] VITALS: BP 106/68; PULSE 66; TEMP 36.4; O2SAT 99
[2017-07-20 15:57] VITALS: BP 131/80; PULSE 79; TEMP 36.6; O2SAT 98
[2017-07-20] MEDS: TRAMADOL HCL 50 MG TAB PO PRN ×2 (16:14→20:34)
[2017-07-20] MEDS: BIMATOPROST 0.01% OP SOLN 2.5 ML BTL OP SCH (20:33)
[2017-07-20] MEDS: SENNA 8.6 MG TAB PO SCH (21:41)
[2017-07-21 00:15] VITALS: BP 119/66; PULSE 76; TEMP 36.4; O2SAT 96
[2017-07-21] MEDS: TRAMADOL HCL 50 MG TAB PO PRN ×3 (00:54→13:28)
[2017-07-21] MEDS: ACETAMINOPHEN 500 MG TAB PO SCH ×2 (06:15→13:30)
--- NOTE | 2017-07-21 07:24 | Orthopedic Progress Note ---
Orthopedic Progress Note Date of Service Jul 21, 2017. Subjective Post OP Day: 2 Reports: feeling well, pain controlled w PO medications, Denies: complaints, chest pain, SOB, nausea / vomiting, light headedness, calf pain Objective calves soft nontender, N/V intact, capillary refill less than 2 sec., incision C /D/I, A&O x3, toes mobile Date Time Temp Pulse Resp B/P (MAP) Pulse Ox O2 Delivery O2 Flow Rate FiO2 07/21/17 00:15 36.4 76 16 119/66 (83) 96 Room Air 07/20/17 23:05 Room Air 07/20/17 16:10 Room Air 07/20/17 15:57 36.6 79 16 131/80 (97) 98 Room Air 07/20/17 11:29 36.4 66 16 106/68 (81) 99 Room Air 07/20/17 10:48 79 97 07/20/17 07:55 36.4 73 16 108/71 (83) 98 Room Air 07/20/17 07:30 Room Air Assessment & Plan Assessment: POD 2 s/p Left TKA mild foot drop yesterday, resolved this am Plan: PT/OT foot weakness resolved. Planning for her niece to do her PT at home Discharge Planning Discharge Planning: home with home health DVT Prophylaxis: TEDs, SCDs, ASA Therapy: Physical Therapy
--- NOTE | 2017-07-21 07:27 | Discharge Instructions ---
Discharge Instructions Date of Service Jul 21, 2017. Admission Reason for Admission: Left Knee Osteoarthritis Discharge Discharge Diagnosis / Problem: left total knee replacement Discharge Goals Goal(s): Decrease discomfort, Improve function, Increase independence Activity Recommendations Activity Limitations: as noted below Weightbearing Status: Left weightbearing (as tolerated) . Instructions / Follow-Up Instructions / Follow-Up ACTIVITY RECOMMENDATIONS: SELF CARE INSTRUCTIONS AFTER TOTAL KNEE REPLACEMENT A. You may need to continue a physical therapy program after discharge from the hospital. There are several options available to you. Your doctor will assist you in selecting the best one for you. 1. An out-patient facility 2 to 3 times a week for therapy or home therapy. 2. Continue working on all exercises taught to you in the hospital. Your goals should be to increase bending of your knee to 90 degrees and beyond and to fully straighten your knee. B. You may progress at your own pace from walking with a walker or crutches to a cane; then to no assistive devices. C. Make walking a part of your daily routine. Be up as much as comfortable with rest periods throughout the day. Rest with leg elevation is very important. Use the ice wrap frequently for the first 3-4 weeks. D. There are no restrictions on activities. You may ride in a car, shop, participate in greenkeeper and all social activities. E. Wear the long elastic stockings (DASHA hose) 20 hours a day for 2 weeks after surgery. They can be removed several times a day for laundering and for a bath. F. You may shower, no tub baths until cleared by your doctor. SPECIAL CARE INSTRUCTIONS: VERY IMPORTANT TO READ AND REVIEW A. There are a few signs you need to watch for after you are home. Call [facility] if you notice any of the followin. Increased severe knee pain. Some pain is expected especially when you exercise. 2. Increased swelling in your leg or knee; pain or swelling of the calf muscle in either lower leg. 3. Any fluid drainage from the incision. 4. Shortness of breath or chest pain. B. Please call [facility] at if you have any concerns or questions about your operation or recovery. The doctor or his nurse will return your call promptly. C. You must take antibiotics before dental work, bladder, bowel or other surgery. Your doctor will provide you with a permanent care to carry describing this precaution. IMPORTANT: * REMEMBER TO TAKE ASPIRIN, 81 MG, TWICE DAILY FOR 4 WEEKS UNLESS OTHERWISE DIRECTED. THIS IS YOUR BLOOD THINNER. * HIGH RISK PATIENTS MAY BE PRESCRIBED A STRONGER BLOOD THINNER. THIS WILL BE PROVIDED AT DISCHARGE. * CALL IF INCREASED PAIN, REDNESS, DRAINAGE OR FEVER GREATER THAT 101. * WEAR DASHA HOSE 20 HOURS PER DAY FOR 2 WEEKS. * DERMABOND Prineo- This is a mesh tape dressing that is covered with glue. It should remain in place until the incision is properly healed, usually 10-14 days. This dressing is designed to naturally slough off. You may trim the excess mesh tape as it peels off. Incision may be briefly wet in a shower. Dry immediately by blotting with a clean, dry towel. Do not bath or swim until instructed by your doctor. Do not scratch, rub, or pick at the dressing. Do not apply any topical ointments or lotions until dressing is completely removed and/or instructed by your doctor. There may be a small piece of suture material at one end of your incision. Do not pull or trim this. If it is bothersome or catching on clothing, you may cover it with a band-aid. FOLLOW UP VISIT: If appointment is not already scheduled: Please call [facility] to make a follow-up appointment for 2 weeks after your surgery at . Current Hospital Diet Patient's current hospital diet: Regular Diet Discharge Diet Recommended Diet: Regular Diet Procedures Procedures Performed: Left Total Knee Arthroplasty utilizing Carrillo nephew journey to non-block total knee arthroplasty size 4 femur 4 tibia 9 polyethylene 32 oval patella Pending Studies Studies pending at discharge: no Laboratory Results Hemoglobin A1c Test 07/08/17 12:07 Range/Units Estimated Average Glucose 117 mg/dl Hemoglobin A1c 5.7 H 4.5-5.6 % Medical Emergencies . Who to Call and When: Medical Emergencies: If at any time you feel your situation is an emergency, please call 911 immediately. . Non-Emergent Contact Non-Emergency issues call your: Primary Care Provider, Surgeon . "Provider Documentation" section prepared by Reynaldo Barry. . [place] Drug Monitoring Program Search Results: patient reviewed within database, no issues identified
[2017-07-21 07:30] VITALS: BP 107/69; PULSE 65; TEMP 36.3; O2SAT 95
[2017-07-21] MEDS ORDERED: ULT50X PO (07:30)
[2017-07-21] MEDS ORDERED: ACET-24 PO (07:30)
[2017-07-21] MEDS ORDERED: ASPI-320 PO (07:30)
[2017-07-21] MEDS ORDERED: ONDA-170 PO (07:30)
[2017-07-21] MEDS ORDERED: CLC100 PO (07:30)
[2017-07-21 08:38] VITALS: BP 107/69; PULSE 65; TEMP 36.3; O2SAT 95
[2017-07-21] MEDS: PANTOprazole SOD 40 MG TAB PO SCH (08:55)
[2017-07-21] MEDS: MULTIVITAMIN TAB PO SCH (08:55)
[2017-07-21] MEDS: METOPROLOL SUCC 25MG EXT REL TAB PO SCH (08:55)
[2017-07-21] MEDS: DOCUSATE SODIUM 100 MG CAP PO SCH (09:22)
[2017-07-21] MEDS: ASPIRIN 81 MG ECTAB PO SCH (09:22)
--- NOTE | 2017-07-21 11:11 | Discharge Summary ---
Orthopedic Discharge Summary Admission Date/Reason Jul 19, 2017 at 10:33 Left Knee Osteoarthritis. Discharge Date/Disposition Jul 21, 2017 Home with services Diagnosis Principal Diagnosis: left knee osteoarthritis Procedure(s) Performed Left Total Knee Arthroplasty utilizing Carrillo neph journey to non-block total knee arthroplasty size 4 femur 4 tibia 9 polyethylene 32 oval patella Consultations NONE Medication Reconciliation New Medications: Ondansetron Hcl (Zofran) 8 Mg Tab 8 MG PO Q8 PRN for Nausea, #20 TAB Acetaminophen (Sb Non-Aspirin Extra Stre) 500 Mg Tab 1000 MG PO Q8, #63 TAB Aspirin (Aspirin EC Low Dose) 81 Mg Ectab 81 MG PO BID for 30 Days, #60 TAB Docusate Sodium (Docusate Sodium) 100 Mg Cap 100 MG PO BID for 10 Days, #20 CAP Tramadol HCl (Tramadol HCl) 50 Mg Tab 50-100 MG PO Q4H PRN for Pain, #60 TAB Continued Medications: Aloe Vera (Topical) (Aloe Vera) 1 Gel Gel 1 TAB PO QAM Bimatoprost (Lumigan) 0.01 % Sarah 1 DROPS OP HS for 30 Days, #2.5 ML 3 Refills Brimonidine Tartrate (Alphagan P Oph) 0.1 % Sarah 1 DROP OP BID, BTL Metoprolol Succ (Toprol Xl) (Toprol-Xl) 25 Mg Tabcr 25 MG PO QAM, #30 TAB Sennosides-Docusate Sodium (Stool Softener) 1 Tab Tab 1 TAB PO PRN Discontinued Medications: Ibuprofen (Advil) 200 Mg Tab 400 MG PO PRN, TAB Admission Physical Exam As per Admitting History & Physical. Hospital Course Patient was a same day admission after undergoing a successful left TKA. She tolerated the procedure well. Post-operatively, her activity was progressed and well tolerated. Please refer to daily progress notes and PT notes for complete details. After exam on 07/21/17, patient felt to be stable for discharge home with HHPT, she used [facility]PT after her other knee TKA. Patient will f/u in the office in 2 weeks for further evaluation including x-rays and incision check, sooner if having any issues or concerns. Below are pertinent labs/studies during their hospital stay: Last Vital Signs Documentation Date Time Temp Pulse Resp B/P (MAP) Pulse Ox O2 Delivery O2 Flow Rate FiO2 07/21/17 08:38 36.3 65 16 95 Room Air 07/21/17 07:30 107/69 (82) 07/19/17 16:33 1.0 Last Resulted CBC 07/20/17 06:08 Last Resulted BMP 07/20/17 06:08 Discharge Instructions ACTIVITY RECOMMENDATIONS: SELF CARE INSTRUCTIONS AFTER TOTAL KNEE REPLACEMENT A. You may need to continue a physical therapy program after discharge from the hospital. There are several options available to you. Your doctor will assist you in selecting the best one for you. 1. An out-patient facility 2 to 3 times a week for therapy or home therapy. 2. Continue working on all exercises taught to you in the hospital. Your goals should be to increase bending of your knee to 90 degrees and beyond and to fully straighten your knee. B. You may progress at your own pace from walking with a walker or crutches to a cane; then to no assistive devices. C. Make walking a part of your daily routine. Be up as much as comfortable with rest periods throughout the day. Rest with leg elevation is very important. Use the ice wrap frequently for the first 3-4 weeks. D. There are no restrictions on activities. You may ride in a car, shop, participate in financial recording clerk and all social activities. E. Wear the long elastic stockings (DASHA hose) 20 hours a day for 2 weeks after surgery. They can be removed several times a day for laundering and for a bath. F. You may shower, no tub baths until cleared by your doctor. SPECIAL CARE INSTRUCTIONS: VERY IMPORTANT TO READ AND REVIEW A. There are a few signs you need to watch for after you are home. Call [facility] if you notice any of the followin. Increased severe knee pain. Some pain is expected especially when you exercise. 2. Increased swelling in your leg or knee; pain or swelling of the calf muscle in either lower leg. 3. Any fluid drainage from the incision. 4. Shortness of breath or chest pain. B. Please call [facility] at if you have any concerns or questions about your operation or recovery. The doctor or his nurse will return your call promptly. C. You must take antibiotics before dental work, bladder, bowel or other surgery. Your doctor will provide you with a permanent care to carry describing this precaution. IMPORTANT: * REMEMBER TO TAKE ASPIRIN, 81 MG, TWICE DAILY FOR 4 WEEKS UNLESS OTHERWISE DIRECTED. THIS IS YOUR BLOOD THINNER. * HIGH RISK PATIENTS MAY BE PRESCRIBED A STRONGER BLOOD THINNER. THIS WILL BE PROVIDED AT DISCHARGE. * CALL IF INCREASED PAIN, REDNESS, DRAINAGE OR FEVER GREATER THAT 101. * WEAR DASHA HOSE 20 HOURS PER DAY FOR 2 WEEKS. * DERMABOND Prineo- This is a mesh tape dressing that is covered with glue. It should remain in place until the incision is properly healed, usually 10-14 days. This dressing is designed to naturally slough off. You may trim the excess mesh tape as it peels off. Incision may be briefly wet in a shower. Dry immediately by blotting with a clean, dry towel. Do not bath or swim until instructed by your doctor. Do not scratch, rub, or pick at the dressing. Do not apply any topical ointments or lotions until dressing is completely removed and/or instructed by your doctor. There may be a small piece of suture material at one end of your incision. Do not pull or trim this. If it is bothersome or catching on clothing, you may cover it with a band-aid. FOLLOW UP VISIT: If appointment is not already scheduled: Please call [facility] to make a follow-up appointment for 2 weeks after your surgery at .
== END 2017-07-21 13:20 | disposition home health service (06) | DRG 470 ==
LOC: C.ACU 09:03 → C.3E 10:33 → ENRESERV 13:40
PROVIDERS: ADMIT Orthopaedic Surgery; ATTEND Orthopaedic Surgery
PROC: 0SRD0J9 Replacement of Left Knee Joint with Synthetic Substitute, Cemented, Open Approach (ICD-10-PCS; principal; 2017-07-19 11:30)
DX: M17.12 Unilateral primary osteoarthritis, left knee (principal); M25.462 Effusion, left knee; M21.062 Valgus deformity, not elsewhere classified, left knee; M21.372 Foot drop, left foot; I10 Essential (primary) hypertension; H40.9 Unspecified glaucoma; E66.9 Obesity, unspecified; Z68.31 Body mass index [BMI] 31.0-31.9, adult; Z96.651 Presence of right artificial knee joint; Z79.899 Other long term (current) drug therapy; Z88.0 Allergy status to penicillin; Z88.2 Allergy status to sulfonamides